=== PATIENT | male | born 1990 | race Caucasian/White ===

== ENCOUNTER 2019-12-29 07:38 | Day surgery (SDC) | payer BC ==
[2019-12-28 13:47] VITALS: BMI 22.4
[2019-12-29 09:29] VITALS: TEMP 98.2
[2019-12-29 09:44] VITALS: BP 111/93; PULSE 64
--- NOTE | 2019-12-30 17:14 | PATH ---
Surgical Pathology Report Patient Name: CHARO VANEGAS JR [facility]. Rec. #: [id number] /Age/Gender: 1990 (Age: 29) / M Account: [id number] Location: U-ENDOSCOPY Taken: 12/29/2019 Received: 12/29/2019 Reported: 12/30/2019 Physicians: Devonte Palomo D.O. Specimen(s) Received ANGULARIS AND BODY Clinical History Vomiting Postoperative diagnosis: Altered gastric anatomy Final Diagnosis STOMACH, ANGULARIS AND BODY, BIOPSY: GASTRIC BODY MUCOSA WITH MILD CHRONIC GASTRITIS. IMMUNOHISTOCHEMICAL STAIN FOR H. PYLORI IS NEGATIVE. Positive and negative controls (internal if applicable) show appropriate results. Electronically Signed Shobha Ruiz M.D. Gross Description Received in formalin, labeled "biopsy angularis and body" are 3 hugo, irregular portions of soft tissue ranging from 0.2-0.3 cm. in greatest dimension. The specimens are submitted in toto in one cassette. /12/29/2019 [facility]12/29/2019
== END 2019-12-29 09:46 | disposition home or self-care (01) ==
LOC: JASU-ENDO 07:38
PROVIDERS: ATTEND Internal Medicine Gastroenterology
PROC: 0DB68ZX Excision of Stomach, Via Natural or Artificial Opening Endoscopic, Diagnostic (ICD-10-PCS; principal; 2019-12-29 08:30)
DX: K29.50 Unspecified chronic gastritis without bleeding (principal); R11.0 Nausea
CPT/HCPCS: 88305-TC; 88342-TC